=== PATIENT | female | born 2000 | race Caucasian/White ===

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

== ENCOUNTER 2020-01-06 21:09 | Emergency (ER) | payer OTHER ==
--- NOTE | 2020-01-06 21:30 | ERPHSYRPT ---
- History of Present Illness Time Seen by Provider: 01/06/20 21:30 Source: patient Exam Limitations: no limitations Physician History: Pt states about 6 hours ago she smoked a cigarette from a friend who ate honey ham and started with shortness of air. 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 Pt states she went to [facility] er for tx and was released about 1 hour later after iv benadryl. About 5 hours ago pt started with sharp constant 8/10 abdominal pain radiating to the back. About 90 minutes ago pt started with mid anterior sharp/achy chest pain radiating to the back. Pt denies chills, vomiting, diarrhea. Allergies/Adverse Reactions: divalproex sodium [From Depakote] Allergy (Mild, Verified 01/06/20 21:37) Rash morphine Allergy (Mild, Verified 01/06/20 21:37) Rash Home Medications: Cariprazine HCl [Vraylar] 1.5 mg PO DAILY 12/16/19 [History] Hx Tetanus, Diphtheria Vaccination/Date Given: Yes Hx Influenza Vaccination/Date Given: No Hx Pneumococcal Vaccination/Date Given: No - Review of Systems Constitutional: No Chills Respiratory: Dyspnea, No Cough Cardiac: Chest Pain Abdominal/Gastrointestinal: Abdominal Pain, No Vomiting, No Diarrhea Neurological: No Headache All Other Systems: Reviewed and Negative - Past Medical History Pertinent Past Medical History: Yes Neurological History: Migraines ENT History: No Pertinent History Cardiac History: No Pertinent History Respiratory History: Asthma Endocrine Medical History: No Pertinent History Musculoskeletal History: No Pertinent History GI Medical History: No Pertinent History History: No Pertinent History Psycho-Social History: Attention Deficit Disorder, Depression Female Reproductive Disorders: No Pertinent History Other Medical History: ADHD - Past Surgical History Past Surgical History: Yes Neuro Surgical History: No Pertinent History Cardiac: No Pertinent History Respiratory: No Pertinent History Gastrointestinal: Cholecystectomy Genitourinary: No Pertinent History Musculoskeletal: No Pertinent History Female Surgical History: No Pertinent History Other Surgical History: tonsils-2008 - Social History Smoking Status: Current every day smoker How long have you smoked: 9 months Exposure to second hand smoke: Yes Drug Use: marijuana Patient Lives Alone: No Significant Family History: no pertinent family hx - Nursing Vital Signs Nursing Vital Signs: Initial Vital Signs Temperature 98.1 F 01/06/20 21:16 Pulse Rate 106 H 01/06/20 21:16 Respiratory Rate 18 01/06/20 21:16 Blood Pressure 124/59 01/06/20 21:16 O2 Sat by Pulse Oximetry 99 01/06/20 21:16 Pain Scale Pain Intensity 7 - Physical Exam General Appearance: alert Eye Exam: PERRL/EOMI Ears, Nose, Throat Exam: hearing grossly normal, normal ENT inspection, normal pharynx Neck Exam: normal inspection Respiratory Exam: lungs clear Cardiovascular/Chest Exam: normal heart sounds Abdominal/Gastrointestinal Exam: soft, normal bowel sounds, tenderness (mild diffuse abdominal tenderness.) Extremity Exam: No pedal edema Peripheral Pulses Exam: dorsalis-pedis (R): 2+, dorsalis-pedis (L): 2+ Neurologic Exam: alert, cooperative Skin Exam: warm, dry SpO2 Interpretation: normal SpO2: 99 O2 Delivery: Room Air - Course Nursing assessment & vital signs reviewed: Yes EKG Interpreted by Me: RATE (82), NORMAL AXIS, NORMAL ST-T, Other (sinus arrhythmia) - CT Exams Chest CT Interpretation: Tele-radiologist Report (No evidence of pulmonary embolus. no evidence of acute pulmonary pathology.) Abdomen/Pelvis CT Interpretation: Tele-radiologist Report (no acute findings.) Ordered Tests: Active Orders 24 hr Category Date Time Status EKG-ER Only STAT Care 01/06/20 21:39 Active ABDOMEN AND PELVIS W/0 CONTRAS [CT] Stat Exams 01/06/20 21:41 Taken CHEST WITH CONTRAST [CT] Stat Exams 01/06/20 22:23 Taken AMYLASE Stat Lab 01/06/20 21:54 Completed CBC W DIFF Stat Lab 01/06/20 21:54 Completed CMP Stat Lab 01/06/20 21:54 Completed D-DIMER QUANTITATIVE Stat Lab 01/06/20 21:54 Completed HCG QUALITATIVE,SERUM Stat Lab 01/06/20 21:54 Completed LIPASE Stat Lab 01/06/20 21:54 Completed MAGNESIUM Stat Lab 01/06/20 21:54 Completed NT PRO BNP Stat Lab 01/06/20 21:54 Completed TROPONIN Q3H Lab 01/06/20 21:45 Completed TROPONIN Q3H Lab 01/07/20 01:46 Completed TROPONIN Q3H Lab 01/07/20 03:45 Ordered TROPONIN Q3H Lab 01/07/20 06:45 Ordered TROPONIN Q3H Lab 01/07/20 09:45 Ordered UA W/RFX UR CULTURE Stat Lab 01/06/20 22:49 Completed Lab/Rad Data: Laboratory Result Diagrams 01/06/20 21:54 01/06/20 21:54 Laboratory Results 01/07/20 01/06/20 01/06/20 Range/Units 01:46 22:49 21:54 WBC (4.0-10.5) K/mm3 RBC (4.1-5.4) M/mm3 Hgb (12.0-16.0) gm/dl Hct (35-47) % MCV (78-100) fl MCH (26-32) pg MCHC (32-36) g/dl RDW (11.5-14.0) % Plt Count (150-450) K/mm3 MPV (7.5-11.0) fl Gran % (36.0-66.0) % Eos # (Auto) (0-0.5) Absolute Lymphs (auto) (1.0-4.6) Absolute Monos (auto) (0.0-1.3) Lymphocytes % (24.0-44.0) % Monocytes % (0.0-12.0) % Eosinophils % (0.00-5.0) % Basophils % (0.0-0.4) % Absolute Granulocytes (1.4-6.9) Basophils # (0-0.4) D-Dimer (215-500) ng/mL Sodium (137-145) mmol/L Potassium (3.5-5.1) mmol/L Chloride (98-107) mmol/L Carbon Dioxide (22-30) mmol/L Anion Gap (5-15) MEQ/L BUN (7-17) mg/dL Creatinine (0.52-1.04) mg/dL Estimated GFR ML/MIN Glucose (74-106) mg/dL Calcium (8.4-10.2) mg/dL Magnesium (1.6-2.3) mg/dL Total Bilirubin (0.2-1.3) mg/dL AST (14-36) U/L ALT (0-35) U/L Alkaline Phosphatase (38-126) U/L Troponin I < 0.012 (0.000-0.034) ng/mL NT-Pro-B Natriuret Pep (0-450) pg/mL Serum Total Protein (6.3-8.2) g/dL Albumin (3.5-5.0) g/dL Amylase (30-110) U/L Lipase (23-300) U/L Serum , Qual NEGATIVE (Negative) Urine Color YELLOW (YELLOW) Urine Appearance CLEAR (CLEAR) Urine pH 6.0 (5-6) Ur Specific Stanley 1.010 (1.005-1.025) Urine Protein NEGATIVE (Negative) Urine Ketones NEGATIVE (NEGATIVE) Urine Blood NEGATIVE (0-5) Jose/ul Urine Nitrite NEGATIVE (NEGATIVE) Urine Bilirubin NEGATIVE (NEGATIVE) Urine Urobilinogen NEGATIVE (0-1) mg/dL Ur Leukocyte Esterase NEGATIVE (NEGATIVE) Urine WBC (Auto) NONE (0-5) /HPF Urine RBC (Auto) NONE (0-2) /HPF U Epithel Cells (Auto) RARE (FEW) /HPF Urine Bacteria (Auto) NONE SEEN (NEGATIVE) /HPF Urine Mucus (Auto) SLIGHT (NEGATIVE) /HPF Urine Culture Reflexed NO (NO) Urine Glucose NEGATIVE (NEGATIVE) mg/dL 01/06/20 01/06/20 01/06/20 Range/Units 21:54 21:54 21:54 WBC 12.4 H (4.0-10.5) K/mm3 RBC 4.46 (4.1-5.4) M/mm3 Hgb 13.0 (12.0-16.0) gm/dl Hct 40.3 (35-47) % MCV 90.4 (78-100) fl MCH 29.1 (26-32) pg MCHC 32.3 (32-36) g/dl RDW 13.8 (11.5-14.0) % Plt Count 306 (150-450) K/mm3 MPV 9.9 (7.5-11.0) fl Gran % 93.0 H (36.0-66.0) % Eos # (Auto) 0 (0-0.5) Absolute Lymphs (auto) 0.83 L (1.0-4.6) Absolute Monos (auto) 0.04 (0.0-1.3) Lymphocytes % 6.7 L (24.0-44.0) % Monocytes % 0.3 (0.0-12.0) % Eosinophils % 0.0 (0.00-5.0) % Basophils % 0.0 (0.0-0.4) % Absolute Granulocytes 11.51 H (1.4-6.9) Basophils # 0 (0-0.4) D-Dimer 692 H* (215-500) ng/mL Sodium 140 (137-145) mmol/L Potassium 3.8 (3.5-5.1) mmol/L Chloride 111 H (98-107) mmol/L Carbon Dioxide 18 L (22-30) mmol/L Anion Gap 14.6 (5-15) MEQ/L BUN 9 (7-17) mg/dL Creatinine 0.71 (0.52-1.04) mg/dL Estimated GFR > 60.0 ML/MIN Glucose 162 H (74-106) mg/dL Calcium 9.7 (8.4-10.2) mg/dL Magnesium 2.0 (1.6-2.3) mg/dL Total Bilirubin 0.40 (0.2-1.3) mg/dL AST 26 (14-36) U/L ALT 24 (0-35) U/L Alkaline Phosphatase 62 (38-126) U/L Troponin I (0.000-0.034) ng/mL NT-Pro-B Natriuret Pep 252 (0-450) pg/mL Serum Total Protein 7.7 (6.3-8.2) g/dL Albumin 4.4 (3.5-5.0) g/dL Amylase 52 (30-110) U/L Lipase 56 (23-300) U/L Serum , Qual (Negative) Urine Color (YELLOW) Urine Appearance (CLEAR) Urine pH (5-6) Ur Specific Stanley (1.005-1.025) Urine Protein (Negative) Urine Ketones (NEGATIVE) Urine Blood (0-5) Jose/ul Urine Nitrite (NEGATIVE) Urine Bilirubin (NEGATIVE) Urine Urobilinogen (0-1) mg/dL Ur Leukocyte Esterase (NEGATIVE) Urine WBC (Auto) (0-5) /HPF Urine RBC (Auto) (0-2) /HPF U Epithel Cells (Auto) (FEW) /HPF Urine Bacteria (Auto) (NEGATIVE) /HPF Urine Mucus (Auto) (NEGATIVE) /HPF Urine Culture Reflexed (NO) Urine Glucose (NEGATIVE) mg/dL 01/06/20 Range/Units 21:45 WBC (4.0-10.5) K/mm3 RBC (4.1-5.4) M/mm3 Hgb (12.0-16.0) gm/dl Hct (35-47) % MCV (78-100) fl MCH (26-32) pg MCHC (32-36) g/dl RDW (11.5-14.0) % Plt Count (150-450) K/mm3 MPV (7.5-11.0) fl Gran % (36.0-66.0) % Eos # (Auto) (0-0.5) Absolute Lymphs (auto) (1.0-4.6) Absolute Monos (auto) (0.0-1.3) Lymphocytes % (24.0-44.0) % Monocytes % (0.0-12.0) % Eosinophils % (0.00-5.0) % Basophils % (0.0-0.4) % Absolute Granulocytes (1.4-6.9) Basophils # (0-0.4) D-Dimer (215-500) ng/mL Sodium (137-145) mmol/L Potassium (3.5-5.1) mmol/L Chloride (98-107) mmol/L Carbon Dioxide (22-30) mmol/L Anion Gap (5-15) MEQ/L BUN (7-17) mg/dL Creatinine (0.52-1.04) mg/dL Estimated GFR ML/MIN Glucose (74-106) mg/dL Calcium (8.4-10.2) mg/dL Magnesium (1.6-2.3) mg/dL Total Bilirubin (0.2-1.3) mg/dL AST (14-36) U/L ALT (0-35) U/L Alkaline Phosphatase (38-126) U/L Troponin I < 0.012 (0.000-0.034) ng/mL NT-Pro-B Natriuret Pep (0-450) pg/mL Serum Total Protein (6.3-8.2) g/dL Albumin (3.5-5.0) g/dL Amylase (30-110) U/L Lipase (23-300) U/L Serum , Qual (Negative) Urine Color (YELLOW) Urine Appearance (CLEAR) Urine pH (5-6) Ur Specific Stanley (1.005-1.025) Urine Protein (Negative) Urine Ketones (NEGATIVE) Urine Blood (0-5) Jose/ul Urine Nitrite (NEGATIVE) Urine Bilirubin (NEGATIVE) Urine Urobilinogen (0-1) mg/dL Ur Leukocyte Esterase (NEGATIVE) Urine WBC (Auto) (0-5) /HPF Urine RBC (Auto) (0-2) /HPF U Epithel Cells (Auto) (FEW) /HPF Urine Bacteria (Auto) (NEGATIVE) /HPF Urine Mucus (Auto) (NEGATIVE) /HPF Urine Culture Reflexed (NO) Urine Glucose (NEGATIVE) mg/dL - Progress Progress: unchanged Counseled pt/family regarding: lab results, rad results - Departure Departure Disposition: Home Clinical Impression: Dyspnea, Chest pain, Abdominal pain Condition: Stable Critical Care Time: No Referrals: LONG DAWKINS MD [Primary Care Provider] - Instructions: Chest Pain, Acute Abdomen (Belly Pain), Adult (DC), Shortness of Breath (Dyspnea) (DC) Additional Instructions: Follow up with private doctor tomorrow.
[2020-01-06 21:58] LABS: Absolute Neutrophil Ct (ANC) 11.51 (1.4-6.9); Basophil (Absolute #) 0 (0-0.4); Eosinophil (Absolute #) 0 (0-0.5); Hematocrit 40.3 % (35-47); Lymphocyte (Absolute #) 0.83 (1.0-4.6); Lymphocytes % 6.7 % (24.0-44.0); Mean Cell Volume 90.4 fl (78-100); Mean Corpuscular Hemoglobin 29.1 pg (26-32); Mean Corpuscular Hgb Concent. 32.3 g/dl (32-36); Mean Platelet Volume 9.9 fl (7.5-11.0); Monocyte (Absolute #) 0.04 (0.0-1.3); Monocytes % 0.3 % (0.0-12.0); Platelet Count 306 K/mm3 (150-450); Red Blood Count 4.46 M/mm3 (4.1-5.4); Red Cell Distribution Width 13.8 % (11.5-14.0); White Blood Count 12.4 K/mm3 (4.0-10.5)
[2020-01-06 22:18] LABS: SGPT/ALT 24 U/L (0-35)
[2020-01-06 22:20] LABS: ALBUMIN 4.4 g/dL (3.5-5.0); ALKALINE PHOSPHATASE 62 U/L (38-126); AMYLASE 52 U/L (30-110); ANION GAP 14.6 MEQ/L (5-15); BLOOD UREA NITROGEN 9 mg/dL (7-17); CHLORIDE 111 mmol/L (98-107); Calcium 9.7 mg/dL (8.4-10.2); Carbon Dioxide 18 mmol/L (22-30); Creatinine 1 0.71 mg/dL (0.52-1.04); Glucose 162 mg/dL (74-106); LIPASE 56 U/L (23-300); NT PRO BNP 252 pg/mL (0-450); Potassium 3.8 mmol/L (3.5-5.1); SGOT/AST 26 U/L (14-36); SODIUM 140 mmol/L (137-145); Total Protein 7.7 g/dL (6.3-8.2)
[2020-01-06 22:55] LABS: Appearance CLEAR (CLEAR); Bilirubin NEGATIVE (NEGATIVE); Blood NEGATIVE Ery/ul (0-5); Epithelial Cells RARE /HPF (FEW); Glucose NEGATIVE (NEGATIVE); Ketones NEGATIVE (NEGATIVE); Leukocyte Esterase NEGATIVE (NEGATIVE); Mucus SLIGHT /HPF (NEGATIVE); Nitrite NEGATIVE (NEGATIVE); Protein,Urine Dip NEGATIVE (Negative); Urobilinogen NEGATIVE mg/dL (0-1)
[2020-01-06 23:01] LABS: Bacteria NONE SEEN /HPF (NEGATIVE)
[2020-01-07 02:27] VITALS: O2SAT 99
[2020-01-07 02:48] VITALS: BP 102/70; PULSE 71
--- NOTE | 2020-01-07 07:56 | XRAY ---
Indication: Abdomen pain following allergic reaction to honey. Multiple contiguous axial images obtained through the abdomen and pelvis without contrast as ordered. Comparison: April 01, 2015. CT chest reported separately. Noncontrasted stomach and bowel loops appear nonobstructed. Normal appendix. Tiny cul-de-sac fluid presumed physiologic from rupture/leaking cyst. No free air. Interval cholecystectomy. Remaining liver, pancreas, spleen, adrenal glands, kidneys, ureters, bladder, uterus, and aorta appear unremarkable for noncontrast exam. Osseous structures intact. No ventral or inguinal hernias. Impression: 1. Tiny cul-de-sac fluid presumed physiologic. 2. Remaining CT abdomen/pelvis without contrast exam is negative. Comment: Preliminary interpretation was made by [facility]. No critical discrepancy.
--- NOTE | 2020-01-07 07:59 | XRAY ---
Indication: Chest pain. Elevated WBC and d-dimer. Multiple contiguous axial images obtained through the chest using 80 cc Isovue-370 contrast and PE protocol. Comparison: None There is suboptimal opacification of the pulmonary arteries limiting evaluation for pulmonary embolus. No obvious central pulmonary embolus. Heart is not enlarged. Aorta is normal in course and caliber. No pathologic mediastinal/hilar lymphadenopathy. Examination of the lungs demonstrates a 1.1 cm peripheral left lower lobe indeterminant non-calcified nodule with irregular margins. Minimal right middle and left lower lobe fibrosis/scarring. No infiltrate, consolidation, or effusion. Bony thorax intact. CT abdomen/pelvis reported separately. Impression: 1. Pulmonary embolus evaluation limited due to suboptimal opacification. No obvious central pulmonary embolus. 2. Indeterminant left lower lobe irregular noncalcified nodule. PET/CT may yield further information. 3. No acute cardiopulmonary abnormalities. Comment: Preliminary interpretation was made by [facility] who does not report incidental left lower lobe nodule.
== END 2020-01-07 02:47 | disposition home or self-care (01) ==
LOC: ED 21:09
DX: R06.00 Dyspnea, unspecified (principal); R07.9 Chest pain, unspecified; R10.9 Unspecified abdominal pain
CPT/HCPCS: 36000; 36415; 71260; 74176; 80053; 81001; 81025; 82150; 83690; 83735; 83880; 84484; 85025; 85379; 93005; 99284

== ENCOUNTER 2020-06-29 00:09 | Emergency (ER) | payer OTHER ==
[2020-06-29] MEDS ORDERED: Ativan 1 MG PO ONE (00:17)
[2020-06-29] MEDS ORDERED: Ativan 1 MG ONE (00:31)
--- NOTE | 2020-06-29 00:35 | ERPHSYRPT ---
- History of Present Illness Time Seen by Provider: 06/29/20 00:11 Source: patient Exam Limitations: no limitations Physician History: Patient is here with chest pain and possible anxiety attack a gas station just prior to arrival. Patient states that she has a long history of mental illness including bipolar, major depression, PTSD, anxiety. She states that while she was at the gas station she had sudden onset of fluttering eyes, overwhelming feeling of dread, chest pain and shortness of breath. She states that she now feels mostly improved from the symptoms. EMS was called and she arrived to the emergency department. Location: chest Quality: sharp Radiation: none Severity: moderate Duration: just [employer] Timing: suddenly Modifying factors/associated signs and symptoms: none tried Allergies/Adverse Reactions: divalproex sodium [From Depakote] Allergy (Mild, Verified 01/06/20 21:37) Rash morphine Allergy (Mild, Verified 01/06/20 21:37) Rash Home Medications: Cariprazine HCl [Vraylar] 1.5 mg PO DAILY 12/16/19 [History] Hx Tetanus, Diphtheria Vaccination/Date Given: Yes Hx Influenza Vaccination/Date Given: No Hx Pneumococcal Vaccination/Date Given: No - Review of Systems Constitutional: No Fever, No Chills Eyes: No Symptoms Ears, Nose, & Throat: No Symptoms Respiratory: Dyspnea, No Cough Cardiac: Chest Pain, No Edema, No Syncope Abdominal/Gastrointestinal: No Abdominal Pain, No Nausea, No Vomiting, No Diarrhea Genitourinary Symptoms: No Dysuria Musculoskeletal: No Back Pain, No Neck Pain Skin: No Rash Neurological: No Dizziness, No Focal Weakness, No Sensory Changes Psychological: No Symptoms Endocrine: No Symptoms All Other Systems: Reviewed and Negative - Past Medical History Pertinent Past Medical History: Yes Neurological History: Migraines ENT History: No Pertinent History Cardiac History: No Pertinent History Respiratory History: Asthma Endocrine Medical History: No Pertinent History Musculoskeletal History: No Pertinent History GI Medical History: No Pertinent History History: No Pertinent History Psycho-Social History: Attention Deficit Disorder, Depression Female Reproductive Disorders: No Pertinent History Other Medical History: ADHD - Past Surgical History Past Surgical History: Yes Neuro Surgical History: No Pertinent History Cardiac: No Pertinent History Respiratory: No Pertinent History Gastrointestinal: Cholecystectomy Genitourinary: No Pertinent History Musculoskeletal: No Pertinent History Female Surgical History: No Pertinent History Other Surgical History: tonsils-2009 - Social History Smoking Status: Current every day smoker How long have you smoked: 9 months Exposure to second hand smoke: Yes Drug Use: marijuana Patient Lives Alone: No Significant Family History: no pertinent family hx - Female History Hx Now: No - Nursing Vital Signs Nursing Vital Signs: Initial Vital Signs Temperature 97.8 F 06/29/20 00:10 Pulse Rate 83 06/29/20 00:10 Respiratory Rate 18 06/29/20 00:10 Blood Pressure 119/66 06/29/20 00:10 O2 Sat by Pulse Oximetry 100 06/29/20 00:10 Pain Scale Pain Intensity 8 - Physical Exam General Appearance: no apparent distress, alert Eye Exam: PERRL/EOMI, eyes nml inspection Ears, Nose, Throat Exam: normal ENT inspection, TMs normal, pharynx normal, moist mucous membranes Neck Exam: normal inspection, non-tender, supple, full range of motion Respiratory Exam: normal breath sounds, lungs clear, No respiratory distress Cardiovascular Exam: regular rate/rhythm, normal heart sounds, normal peripheral pulses Gastrointestinal/Abdomen Exam: soft, normal bowel sounds, No tenderness, No mass Back Exam: normal inspection, normal range of motion, No CVA tenderness, No vertebral tenderness Extremity Exam: normal inspection, normal range of motion, pelvis stable Neurologic Exam: alert, oriented x 3, cooperative, normal mood/affect, nml cereb ellar function, nml station & gait, sensation nml, No motor deficits Skin Exam: normal color, warm, dry, No rash Lymphatic Exam: No adenopathy SpO2 Interpretation: normal Comments: 06/29/20 00:28 Motor: There is no pronator drift of out-stretched arms. Muscle bulk and tone are normal. Strength is full bilaterally. Reflexes: Reflexes are 2+ and symmetric at the biceps, triceps, knees, and ankles. Plantar responses are flexor. Sensory: Light touch sense are intact in bilateral upper and lower extremities. There is no sign of neglect. Coordination: Rapid alternating movements are intact. There is no dysmetria on [id number] and [id number]. There are no abnormal or extraneous movements. Romberg is absent. Gait/Stance: Posture is normal. Gait is steady with normal steps, base, arm swing, and turning. Heel and toe walking are normal. Tandem gait is normal. No trismus, able to fully extend neck, normal range of motion of neck without pain. Uvula is midline, no swelling of the mouth, noraml oropharynx. No exudate, no signs of meningitis, no floor of mouth swelling, no hot potato voice on exam. No buccal swelling, no gum bleeding, no signs of tooth abscess/infection. No obvious deformity, sensation intact, 2+ capillary refill, 2 point tactile discrimination intact. 5 out of 5 strength. Full range of motion without pain. Compartments are soft, nontender. Overlying skin shows no tenting, bruising, ecchymosis. - Course Nursing assessment & vital signs reviewed: Yes EKG Interpreted by Me: Sinus Rhythm Ordered Tests: Active Orders 24 hr Category Date Time Status EKG-ER Only STAT Care 06/29/20 00:17 Active CHEST 1 VIEW (PORTABLE) Stat Exams 06/29/20 00:17 Taken Medication Summary Discontinued Medications Generic Name Dose Route Start Last Admin Trade Name Freq PRN Reason Stop Dose Admin Lorazepam 1 mg 06/29/20 00:17 06/29/20 00:34 Ativan 1 Mg PO 06/29/20 00:18 1 mg STAT ONE Administration Lorazepam Confirm 06/29/20 00:31 Ativan 1 Mg Administered 06/29/20 00:32 Dose 1 mg .ROUTE .STK-MED ONE - Progress Progress: improved Progress Note: 06/29/20 00:31 Patient improved now. 99% on room air. She is not tachycardic. She denies secondary to being a lesbian. PERC negative. No need for further workup, as <2% chance of PE. Chest x-ray shows no obvious pneumonia, pneumothorax, abnormality. EKG sinus rhythm without ST elevation. Patient feels improved with Ativan here. Most likely is a panic attack. She was observed. No drops in oxygen. We will discharge patient home. Plan of care was discussed with patient and all questions answered. The patient is agreeable to be discharged home and both verbal and printed discharge instructions were provided.The patient agreed to seek outpatient follow up as discussed. The patient was given strict instructions to return to the emergency department for worsening symptoms or any other emergent concerns. The patient verbalized understanding. 06/29/20 01:03 Patient did request a Covid test. Therefore, we did do a Covid send out test on the patient. Counseled pt/family regarding: diagnosis, need for follow-up, rad results - Departure Departure Disposition: Home Clinical Impression: Anxiety with limited-symptom attacks Condition: Stable Critical Care Time: No Referrals: LONG DAWKINS MD [Primary Care Provider] - Instructions: Anxiety, Adult (DC)
[2020-06-29 01:13] VITALS: BP 125/49; PULSE 87; O2SAT 99
--- NOTE | 2020-06-29 08:00 | XRAY ---
Indication: Chest pain. Comparison: March 28, 2018. Portable chest demonstrates new 1 cm left midlung nodule detailed on CT chest January 07, 2020. Remaining heart, lungs, and bony thorax normal.
== END 2020-06-29 01:30 | disposition home or self-care (01) ==
LOC: ED 00:09
DX: F41.9 Anxiety disorder, unspecified (principal); F31.9 Bipolar disorder, unspecified; F43.10 Post-traumatic stress disorder, unspecified; Z72.0 Tobacco use
CPT/HCPCS: 71045; 93005; 99284; U0003; A9270-GY

== ENCOUNTER 2021-07-25 20:57 | Emergency (ER) | payer MEDICARE ==
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
[2021-07-25] MEDS ORDERED: NORCO 7.5/325 MG TAB PO ONE (22:43)
[2021-07-25] MEDS ORDERED: HYDROCODONE-ACETAMIN 10-325 MG PO ONE (22:57)
[2021-07-25 23:13] VITALS: BP 118/71; PULSE 80; O2SAT 99
--- NOTE | 2021-07-26 07:53 | XRAY ---
Indication: Pain following injury. Comparison: None 2 view left forearm obtained. No bony, articular, or soft tissue abnormalities.
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
== END 2021-07-25 23:20 | disposition home or self-care (01) ==
LOC: ED 20:57
DX: S62.327A Displaced fracture of shaft of fifth metacarpal bone, left hand, initial encounter for closed fracture (principal); W55.39XA Other contact with other hoof stock, initial encounter; Z72.0 Tobacco use; Z79.891 Long term (current) use of opiate analgesic
CPT/HCPCS: 29125; 73090; 73130; 99284; A9270-GY

== ENCOUNTER 2022-03-10 23:12 | Emergency (ER) | payer MEDICARE ==
--- NOTE | 2022-03-11 00:31 | ERPHSYRPT ---
- History of Present Illness Historian: patient Exam Limitations: no limitations Patient Subjective Stated Complaint: left sided chest pain radiating to left shoulder/neck/jaw. dizziness, nausea, headache, dyspnea. Triage Nursing Assessment: Pt ambulated to room. A&O X 3. Skin color WNL for race. Respirations regular and unlabored. Pt stated that she began taking a new control medication on Wednesday. Shortly after her s/s began. Last dose was at 1530 today, and symptoms have progressively worsened since. Lung sounds clear throughout. Heart sounds s1, s2 present and regular. Bowel sounds present c 4. No edema. Physician History: 21 yo wf w CP x7hrs. Pain is L sternal/dull-stabbing/worse w deep breaths. Pain is 8/10. She states that she is mildly dyspneic w nausea. Vomiting/diaphoresis/cough/coryza/fever all denied. Timing/Duration: hour(s) (7 hours) Activities at Onset: rest Quality: dullness, stabbing Location: other (L sternal) Chest Pain Radiation: no radiation Severity of Pain-Max: severe Severity of Pain-Current: severe Modifying Factors: Improves With: breathing (Deep breaths) Associated Symptoms: nausea, shortness of breath, hurts to breathe, No vomiting, No palpitations, No heartburn, No abdominal pain, No cough, No diaphoresis, No chills, No fever, No fatigue, No weakness, No swelling/lump in chest, No syncope, No rash, No headache, No dizziness, No edema, No back pain Prior Chest Pain/Cardiac Workup: no prior chest pain Nitro Today/Relief: no nitro taken today Aspirin Treatment Today: no aspirin today Allergies/Adverse Reactions: divalproex sodium [From Depakote] Allergy (Mild, Verified 07/25/21 21:04) Rash morphine Allergy (Mild, Verified 07/25/21 21:04) Rash Penicillins Allergy (Verified 03/10/22 23:13) Home Medications: Cariprazine HCl [Vraylar] 1.5 mg PO DAILY 12/16/19 [History] Norgestimate-Ethinyl Estradiol [Ncf-Zy-Zvbdyhsgt Tablet] 1 tab PO DAILY 03/10/22 [History] hydrOXYzine HCL [Hydroxyzine HCl] 25 mg PO Q4H PRN PRN 03/10/22 [History] Hx Tetanus, Diphtheria Vaccination/Date Given: Yes Hx Influenza Vaccination/Date Given: No Hx Pneumococcal Vaccination/Date Given: No Travel Risk - International Travel Have you traveled outside of the country in past 3 weeks: No - Coronavirus Screening Symptoms: Shortness of Breath, Headaches/Body Aches/Fatigue - Vaccine Status Have you recieved a Covid-19 vaccination: No - Review of Systems Constitutional: No Symptoms Eyes: No Symptoms Ears, Nose, & Throat: No Symptoms Respiratory: No Symptoms Cardiac: No Symptoms, Chest Pain Abdominal/Gastrointestinal: No Symptoms Genitourinary Symptoms: No Symptoms Musculoskeletal: No Symptoms Skin: No Symptoms Neurological: No Symptoms Psychological: No Symptoms Endocrine: No Symptoms Hematologic/Lymphatic: No Symptoms Immunological/Allergic: No Symptoms - Past Medical History Pertinent Past Medical History: Yes Neurological History: Migraines, Seizures ENT History: No Pertinent History Cardiac History: Congenital Heart Disease Respiratory History: Asthma Endocrine Medical History: No Pertinent History Musculoskeletal History: No Pertinent History GI Medical History: Polyps History: No Pertinent History Psycho-Social History: Anxiety, Depression Female Reproductive Disorders: Other Other Medical History: Pt unsure of what her congenital heart disease was. 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 Ovarian cysts. - Past Surgical History Past Surgical History: Yes Neuro Surgical History: No Pertinent History Cardiac: No Pertinent History Respiratory: No Pertinent History Gastrointestinal: Cholecystectomy Genitourinary: No Pertinent History Musculoskeletal: No Pertinent History Female Surgical History: No Pertinent History Other Surgical History: colonoscopy - Social History Smoking Status: Current every day smoker How long have you smoked: 4 years Exposure to second hand smoke: Yes Drug Use: marijuana Patient Lives Alone: No Significant Family History: no pertinent family hx - Female History Hx Last Menstrual Period: 03/03/22 Hx Now: No - Nursing Vital Signs Nursing Vital Signs: Initial Vital Signs Temperature 98.5 F 03/10/22 23:13 Pulse Rate 74 03/10/22 23:13 Respiratory Rate 20 03/10/22 23:13 Blood Pressure 124/70 03/10/22 23:13 O2 Sat by Pulse Oximetry 100 03/10/22 23:13 Pain Scale Pain Intensity 6 WNL - Physical Exam General Appearance: no apparent distress Eye Exam: PERRL/EOMI, eyes nml inspection Ears, Nose, Throat Exam: normal ENT inspection, TMs normal, pharynx normal, moist mucous membranes Neck Exam: normal inspection, non-tender, supple, full range of motion, No meningismus, No mass, No Brudzinski, No Kernig's, No carotid bruit Respiratory Exam: normal breath sounds, lungs clear, airway intact, No chest tenderness, No respiratory distress Cardiovascular Exam: regular rate/rhythm, normal heart sounds, normal peripheral pulses, capillary refill <2 sec, No murmur Gastrointestinal/Abdomen Exam: soft, normal bowel sounds, No tenderness Back Exam: normal inspection, normal range of motion, No CVA tenderness, No vertebral tenderness Extremity Exam: normal inspection, normal range of motion Neurologic Exam: alert, oriented x 3, cooperative, galvanizer II-XII nml as tested, normal mood/affect, nml cerebellar function, nml station & gait, sensation nml Skin Exam: normal color, warm, dry, No rash Lymphatic Exam: No adenopathy SpO2 Interpretation: normal SpO2: 100 O2 Delivery: Room Air - Course Nursing assessment & vital signs reviewed: Yes EKG Interpreted by Me: RATE (NSR/Rate 74/Normal QT-QTc/no acute ST segment changes) - Radiology Exams Chest X-ray Interpretation: Interpreted by me (CXR NAD) Ordered Tests: Active Orders 24 hr Category Date Time Status EKG-ER Only STAT Care 03/11/22 00:24 Completed CHEST 1 VIEW (PORTABLE) Stat Exams 03/11/22 00:24 Taken CBC W DIFF Stat Lab 03/11/22 00:24 Completed CMP Stat Lab 03/11/22 00:24 Completed D-DIMER QUANTITATIVE Stat Lab 03/11/22 00:24 Completed PROTIME WITH INR Stat Lab 03/11/22 00:24 Completed PTT Stat Lab 03/11/22 00:24 Completed TROPONIN Q4H Lab 03/11/22 00:30 Completed TROPONIN Q4H Lab 03/11/22 04:30 Ordered TROPONIN Q4H Lab 03/11/22 08:30 Ordered Medication Summary Discontinued Medications Generic Name Dose Route Start Last Admin Trade Name Freq PRN Reason Stop Dose Admin Ketorolac Tromethamine 15 mg 03/11/22 01:47 03/11/22 01:51 Ketorolac Tromethamine 30 Mg/Ml Inj IV 03/11/22 01:48 15 mg STAT ONE Administration Ketorolac Tromethamine Confirm 03/11/22 01:50 Ketorolac Tromethamine 30 Mg/Ml Inj Administered 03/11/22 01:51 Dose 30 mg .ROUTE .STK-MED ONE Lab/Rad Data: Laboratory Result Diagrams 03/11/22 00:24 03/11/22 00:24 Laboratory Results 03/11/22 03/11/22 03/11/22 Range/Units 00:30 00:24 00:24 WBC (4.0-10.5) x10^3/uL RBC (4.1-5.4) x10^6/uL Hgb (12.0-16.0) g/dL Hct (35-47) % MCV (78-100) fL MCH (26-32) pg MCHC (32-36) g/dL RDW (11.5-14.0) % Plt Count (150-450) x10^3/uL MPV (7.5-11.0) fL Gran % (36.0-66.0) % Immature Gran % (Auto) (0.00-0.4) % Nucleat RBC Rel Count (0.00-0.1) % Eos # (Auto) (0-0.5) x10^3/uL Immature Gran # (Auto) (0.00-0.03) x10^3u/L Absolute Lymphs (auto) (1.0-4.6) x10^3/uL Absolute Monos (auto) (0.0-1.3) x10^3/uL Absolute Nucleated RBC (0.00-0.01) x10^3u/L Lymphocytes % (24.0-44.0) % Monocytes % (0.0-12.0) % Eosinophils % (0.00-5.0) % Basophils % (0.0-0.4) % Absolute Granulocytes (1.4-6.9) x10^3/uL Basophils # (0-0.4) x10^3/uL PT 11.4 (9.4-12.5) SECONDS INR 1.08 (0.8-3.0) APTT 27.7 (25.1-36.5) SECONDS D-Dimer 0.28 (0.0-0.50) mg/L Sodium 139 (137-145) mmol/L Potassium 4.4 (3.5-5.1) mmol/L Chloride 104 (98-107) mmol/L Carbon Dioxide 28 (22-30) mmol/L Anion Gap 11.9 (5-15) MEQ/L BUN 12 (7-17) mg/dL Creatinine 0.84 (0.52-1.04) mg/dL Estimated GFR > 60.0 ML/MIN Glucose 90 (74-106) mg/dL Calcium 9.4 (8.4-10.2) mg/dL Total Bilirubin 0.60 (0.2-1.3) mg/dL AST 24 (14-36) U/L ALT 12 (0-35) U/L Alkaline Phosphatase 45 (38-126) U/L Troponin I < 0.012 (0.000-0.034) ng/mL Serum Total Protein 7.6 (6.3-8.2) g/dL Albumin 4.7 (3.5-5.0) g/dL 03/11/22 Range/Units 00:24 WBC 8.8 (4.0-10.5) x10^3/uL RBC 4.28 (4.1-5.4) x10^6/uL Hgb 13.2 (12.0-16.0) g/dL Hct 40.5 (35-47) % MCV 94.6 (78-100) fL MCH 30.8 (26-32) pg MCHC 32.6 (32-36) g/dL RDW 12.8 (11.5-14.0) % Plt Count 297 (150-450) x10^3/uL MPV 10.1 (7.5-11.0) fL Gran % 44.2 (36.0-66.0) % Immature Gran % (Auto) 0.2 (0.00-0.4) % Nucleat RBC Rel Count 0.0 (0.00-0.1) % Eos # (Auto) 0.39 (0-0.5) x10^3/uL Immature Gran # (Auto) 0.02 (0.00-0.03) x10^3u/L Absolute Lymphs (auto) 3.95 (1.0-4.6) x10^3/uL Absolute Monos (auto) 0.47 (0.0-1.3) x10^3/uL Absolute Nucleated RBC 0.00 (0.00-0.01) x10^3u/L Lymphocytes % 45.1 H (24.0-44.0) % Monocytes % 5.4 (0.0-12.0) % Eosinophils % 4.5 (0.00-5.0) % Basophils % 0.6 (0.0-0.4) % Absolute Granulocytes 3.87 (1.4-6.9) x10^3/uL Basophils # 0.05 (0-0.4) x10^3/uL PT (9.4-12.5) SECONDS INR (0.8-3.0) APTT (25.1-36.5) SECONDS D-Dimer (0.0-0.50) mg/L Sodium (137-145) mmol/L Potassium (3.5-5.1) mmol/L Chloride (98-107) mmol/L Carbon Dioxide (22-30) mmol/L Anion Gap (5-15) MEQ/L BUN (7-17) mg/dL Creatinine (0.52-1.04) mg/dL Estimated GFR ML/MIN Glucose (74-106) mg/dL Calcium (8.4-10.2) mg/dL Total Bilirubin (0.2-1.3) mg/dL AST (14-36) U/L ALT (0-35) U/L Alkaline Phosphatase (38-126) U/L Troponin I (0.000-0.034) ng/mL Serum Total Protein (6.3-8.2) g/dL Albumin (3.5-5.0) g/dL - Progress Progress: improved Progress Note: 03/11/22 01:47 15mg IV Toradol 03/11/22 01:48 Heart score 0 Counseled pt/family regarding: lab results, diagnosis, need for follow-up, rad results - Departure Departure Disposition: Home Clinical Impression: Chest pain Condition: Stable Critical Care Time: No Referrals: LONG DAWKINS MD [Primary Care Provider] - Follow up/PCP as directed Instructions: Chest Pain (DC) Additional Instructions: Follow up with your family MD Return to ER for increasing pain or temperature greater than 100.5
[2022-03-11 00:37] LABS: Absolute Neutrophil Ct (ANC) 3.87 x10^3/uL (1.4-6.9); Basophil (Absolute #) 0.05 x10^3/uL (0-0.4); Eosinophil % 4.5 % (0.00-5.0); Eosinophil (Absolute #) 0.39 x10^3/uL (0-0.5); Hematocrit 40.5 % (35-47); Hemoglobin 13.2 g/dL (12.0-16.0); Lymphocyte (Absolute #) 3.95 x10^3/uL (1.0-4.6); Lymphocytes % 45.1 % (24.0-44.0); Mean Cell Volume 94.6 fL (78-100); Mean Corpuscular Hemoglobin 30.8 pg (26-32); Mean Corpuscular Hgb Concent. 32.6 g/dL (32-36); Mean Platelet Volume 10.1 fL (7.5-11.0); Monocyte (Absolute #) 0.47 x10^3/uL (0.0-1.3); Monocytes % 5.4 % (0.0-12.0); Neutrophil % 44.2 % (36.0-66.0); Platelet Count 297 x10^3/uL (150-450); Red Blood Count 4.28 x10^6/uL (4.1-5.4); Red Cell Distribution Width 12.8 % (11.5-14.0); White Blood Count 8.8 x10^3/uL (4.0-10.5)
[2022-03-11 00:40] LABS: ALBUMIN 4.7 g/dL (3.5-5.0); ALKALINE PHOSPHATASE 45 U/L (38-126); ANION GAP 11.9 MEQ/L (5-15); BLOOD UREA NITROGEN 12 mg/dL (7-17); CHLORIDE 104 mmol/L (98-107); Calcium 9.4 mg/dL (8.4-10.2); Carbon Dioxide 28 mmol/L (22-30); Creatinine 1 0.84 mg/dL (0.52-1.04); EST GLOMERULAR FILTRATION RATE > 60.0 ML/MIN; Glucose 90 mg/dL (74-106); Potassium 4.4 mmol/L (3.5-5.1); SGOT/AST 24 U/L (14-36); SGPT/ALT 12 U/L (0-35); SODIUM 139 mmol/L (137-145); Total Protein 7.6 g/dL (6.3-8.2)
[2022-03-11 00:46] LABS: D-DIMER QUANTITATIVE 0.28 mg/L (0.0-0.50); INR 1.08 (0.8-3.0); PROTIME 11.4 SECONDS (9.4-12.5); PTT 27.7 SECONDS (25.1-36.5)
[2022-03-11] MEDS ORDERED: TORAdol 30 mg Injection ONE (01:50)
[2022-03-11] MEDS: TORAdol 30 mg Injection IV ONE (01:51)
[2022-03-11 02:07] VITALS: BP 105/62; PULSE 62
[2022-03-11 02:23] VITALS: O2SAT 100
--- NOTE | 2022-03-11 09:12 | XRAY ---
Indication: Chest pain. Comparison: June 29, 2020 Portable apical lordotic chest demonstrates stable small left midlung benign nodule. Remaining heart, lungs, and bony thorax normal.
== END 2022-03-11 02:07 | disposition home or self-care (01) ==
LOC: ED 23:12
DX: R07.9 Chest pain, unspecified (principal); R06.00 Dyspnea, unspecified; R11.0 Nausea; Z72.0 Tobacco use; Z79.899 Other long term (current) drug therapy; Z28.310 Unvaccinated for COVID-19
CPT/HCPCS: 36415; 71045; 80053; 84484; 85025; 85379; 85610; 85730; 93005; 96374; 99284; J1885

== ENCOUNTER 2022-08-09 20:01 | Emergency (ER) | payer MEDICARE ==
--- NOTE | 2022-08-09 20:05 | ERPHSYRPT ---
- History of Present Illness Time Seen by Provider: 08/09/22 20:05 Source: patient Exam Limitations: no limitations Physician History: 21 y/o left handed white female presents with right middle finger superficial flap laceration. pts tetanus utd less than 1 year ago[address] pts pcp dr Dawkins. pt has h/o migraine nolan, seizure d/o, asthma, and anxiety. broken glass involved Timing/Duration: today Quality: painful Severity: mild Location: hands (right hand distal 3rd digit laceratiojn) Possible Causes: no cause identified Allergies/Adverse Reactions: honey Allergy (Severe, Verified 08/09/22 20:16) Difficulty Breathing divalproex sodium [From Depakote] Allergy (Mild, Verified 08/09/22 20:16) Rash morphine Allergy (Mild, Verified 08/09/22 20:16) Rash Penicillins Allergy (Verified 08/09/22 20:16) Home Medications: hydrOXYzine HCL [Hydroxyzine HCl] 25 mg PO Q4H PRN PRN 03/10/22 [History] Doxepin HCl 10 mg PO HS 08/09/22 [History] Ondansetron ODT 4 MG [Zofran Odt 4 mg] 1 tab PO Q8H PRN PRN 08/09/22 [History] Hx Tetanus, Diphtheria Vaccination/Date Given: Yes Hx Influenza Vaccination/Date Given: No Hx Pneumococcal Vaccination/Date Given: No Travel Risk - International Travel Have you traveled outside of the country in past 3 weeks: No - Coronavirus Screening Are you exhibiting any of the following symptoms?: No Close contact with a COVID-19 positive Pt in past 14-21 Days: No - Vaccine Status Have you recieved a Covid-19 vaccination: No - Review of Systems Constitutional: No Symptoms Eyes: No Symptoms Ears, Nose, & Throat: No Symptoms Respiratory: No Symptoms Cardiac: No Symptoms Abdominal/Gastrointestinal: No Symptoms Genitourinary Symptoms: No Symptoms Musculoskeletal: No Symptoms Skin: Other (laceration) Neurological: No Symptoms Psychological: No Symptoms Endocrine: No Symptoms Hematologic/Lymphatic: No Symptoms Immunological/Allergic: No Symptoms All Other Systems: Reviewed and Negative - Past Medical History Pertinent Past Medical History: Yes Neurological History: Migraines, Seizures ENT History: No Pertinent History Cardiac History: Congenital Heart Disease Respiratory History: Asthma Endocrine Medical History: No Pertinent History Musculoskeletal History: No Pertinent History GI Medical History: Polyps History: No Pertinent History Psycho-Social History: Anxiety, Depression Female Reproductive Disorders: Other Other Medical History: Pt unsure of what her congenital heart disease was. 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 Ovarian cysts. - Past Surgical History Past Surgical History: Yes Neuro Surgical History: No Pertinent History Cardiac: No Pertinent History Respiratory: No Pertinent History Gastrointestinal: Cholecystectomy Genitourinary: No Pertinent History Musculoskeletal: No Pertinent History Female Surgical History: No Pertinent History Other Surgical History: colonoscopy - Social History Smoking Status: Current every day smoker How long have you smoked: 4 years Exposure to second hand smoke: Yes Drug Use: marijuana Patient Lives Alone: No Significant Family History: no pertinent family hx - Nursing Vital Signs Nursing Vital Signs: Initial Vital Signs Temperature 97.6 F 08/09/22 20:05 Pulse Rate 74 08/09/22 20:05 Respiratory Rate 18 08/09/22 20:05 Blood Pressure 111/63 08/09/22 20:05 O2 Sat by Pulse Oximetry 100 08/09/22 20:05 Pain Scale Pain Intensity 4 - Physical Exam General Appearance: no apparent distress, alert, anxiety Eye Exam: PERRL/EOMI, eyes nml inspection Ears, Nose, Throat Exam: normal ENT inspection, moist mucous membranes Neck Exam: normal inspection, non-tender, supple, full range of motion Respiratory Exam: airway intact, No chest tenderness, No respiratory distress Gastrointestinal/Abdomen Exam: No tenderness Pelvic Exam: not done Rectal Exam: not done Back Exam: normal inspection, normal range of motion, No CVA tenderness, No vertebral tenderness Extremity Exam: normal range of motion, pelvis stable, tenderness (3rd digit right hand) Skin Exam: laceration (flap distal 3rd digit right hand. no fb, no bleeding, tendon and nv intact) Lymphatic Exam: No adenopathy SpO2 Interpretation: normal O2 Delivery: Room Air Procedures - Laceration/Wound Repair Right Distal Volar Finger Time of Procedure: 20:30 Wound Location: Right, hand (3rd digit) Wound Length (cm): 0.5 Wound's Depth, Shape: superficial, linear, flap Wound Explored: clean (no fb, no bleeding. explored to bas) Irrigated: Yes Hibiclens Prep: Yes Wound Repaired With: Steri-strips, Dermabond Sterile Dressing Applied?: Yes Ordered Tests: Active Orders 24 hr Category Date Time Status HAND (MINIMUM 3 VIEWS) Stat Exams 08/09/22 20:12 Ordered - Progress Progress: improved, pain not gone completely, re-examined Progress Note: 08/09/22 20:41 xray right hand interpreted by me: no fb, no acute process 08/09/22 20:41 medical decision making: this encountered is of low complexity. i came to this conclusion based on evaluation of pts hx(which i obtained from pt), physical exam findings and interpretation of pts right hand xray Counseled pt/family regarding: diagnosis, need for follow-up - Departure Departure Disposition: Home Clinical Impression: Laceration of finger Condition: Stable Critical Care Time: No Referrals: LONG DAWKINS MD [Primary Care Provider] - Follow up/PCP as directed Additional Instructions: leave top dressing in place and keep dry for 24 hours. after 24 hours, may remove top dressing and leave steristrips in place until they fall off on their own. use tylenol and ibuprofen for pain control
[2022-08-09 20:08] VITALS: O2SAT 100
[2022-08-09 21:06] VITALS: BP 102/62; PULSE 73
--- NOTE | 2022-08-10 08:49 | XRAY ---
Indication: Fourth finger laceration. Comparison: None 3 view right hand obtained. No bony, articular, or soft tissue abnormalities.
== END 2022-08-09 21:03 | disposition home or self-care (01) ==
LOC: ED 20:01
DX: S61.212A Laceration without foreign body of right middle finger without damage to nail, initial encounter (principal); W25.XXXA Contact with sharp glass, initial encounter; Z79.899 Other long term (current) drug therapy; Z28.310 Unvaccinated for COVID-19; Z72.0 Tobacco use
CPT/HCPCS: 12001; 73130; 99281

== ENCOUNTER 2022-12-13 21:16 | Emergency (ER) | payer MEDICARE ==
[2022-12-13 21:25] VITALS: BP 120/79; PULSE 78; O2SAT 100
[2022-12-13] MEDS ORDERED: TORAdol 30 mg Injection IM ONE (21:36)
[2022-12-13] MEDS ORDERED: TORAdol 30 mg Injection ONE (21:40)
--- NOTE | 2022-12-13 21:48 | ERPHSYRPT ---
- History of Present Illness Source: patient Exam Limitations: no limitations Patient Subjective Stated Complaint: pt c/o R leg pain that radiates to R lower back, abrasion on R great toe Triage Nursing Assessment: pt ambulatory to room by self with steady gait, pt alert and oriented, pt c/o R leg pain after brother slid into her leg playing baseball, pt has ecchymosis on lateral aspect of R leg, abrasion on R great toe, tetanus utd, pt admitted to smoking marijuana Physician History: 22 yo WF w R foot pain and R lateral fibular pain after brother slid into leg while playing baseball before arrival. Pain is moderate and worse w weight favio ring. She denies other injuries, and tetanus is UTD. is also denied. Method of Injury: direct blow (Brother slid into leg) Occurred: just prior to arrival Quality: constant Severity of Pain-Max: severe Severity of Pain-Current: moderate Lower Extremities Pain: leg: right, foot: right Modifying Factors: Improves With: movement Associated Symptoms: none Allergies/Adverse Reactions: honey Allergy (Severe, Verified 12/13/22 21:23) Difficulty Breathing divalproex sodium [From Depakote] Allergy (Mild, Verified 12/13/22 21:23) Rash morphine Allergy (Mild, Verified 12/13/22 21:23) Rash Penicillins Allergy (Verified 12/13/22 21:23) Home Medications: hydrOXYzine HCL [Hydroxyzine HCl] 25 mg PO Q4H PRN PRN 03/10/22 [History] Doxepin HCl 10 mg PO HS 08/09/22 [History] Ondansetron ODT 4 MG [Zofran Odt 4 mg] 1 tab PO Q8H PRN PRN 08/09/22 [History] Hx Tetanus, Diphtheria Vaccination/Date Given: Yes Hx Influenza Vaccination/Date Given: No Hx Pneumococcal Vaccination/Date Given: No Immunizations Up to Date: Yes Travel Risk - International Travel Have you traveled outside of the country in past 3 weeks: No - Coronavirus Screening Are you exhibiting any of the following symptoms?: No Close contact with a COVID-19 positive Pt in past 14-21 Days: No - Vaccine Status Have you recieved a Covid-19 vaccination: No - Review of Systems Constitutional: No Symptoms Eyes: No Symptoms Ears, Nose, & Throat: No Symptoms Respiratory: No Symptoms Cardiac: No Symptoms Abdominal/Gastrointestinal: No Symptoms Genitourinary Symptoms: No Symptoms Skin: No Symptoms Neurological: No Symptoms Psychological: No Symptoms Endocrine: No Symptoms Hematologic/Lymphatic: No Symptoms Immunological/Allergic: No Symptoms - Past Medical History Pertinent Past Medical History: Yes Neurological History: Migraines, Seizures ENT History: No Pertinent History Cardiac History: Congenital Heart Disease Respiratory History: Asthma Endocrine Medical History: No Pertinent History Musculoskeletal History: No Pertinent History GI Medical History: Polyps History: No Pertinent History Psycho-Social History: Anxiety, Depression Female Reproductive Disorders: Other Other Medical History: Pt unsure of what her congenital heart disease was. 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 Ovarian cysts., factor 5 - Past Surgical History Past Surgical History: Yes Neuro Surgical History: No Pertinent History Cardiac: No Pertinent History Respiratory: No Pertinent History Gastrointestinal: Cholecystectomy Genitourinary: No Pertinent History Musculoskeletal: No Pertinent History Female Surgical History: No Pertinent History Other Surgical History: colonoscopy - Social History Smoking Status: Former smoker How long have you smoked: 4 years Exposure to second hand smoke: Yes Drug Use: marijuana Patient Lives Alone: No Significant Family History: no pertinent family hx - Female History Hx Last Menstrual Period: 12/11/22 Hx Now: No - Nursing Vital Signs Nursing Vital Signs: Initial Vital Signs Temperature 98.6 F 12/13/22 21:23 Pulse Rate 78 12/13/22 21:23 Respiratory Rate 18 12/13/22 21:23 Blood Pressure 120/79 12/13/22 21:23 O2 Sat by Pulse Oximetry 100 12/13/22 21:23 Pain Scale Pain Intensity 7 WNL - Physical Exam General Appearance: no apparent distress Eyes, Ears, Nose, Throat Exam: normal ENT inspection, TMs normal, pharynx normal, moist mucous membranes Neck Exam: normal inspection, non-tender, supple, full range of motion, No Brudzinski, No Kernig's, No meningismus Cardiovascular/Respiratory Exam: normal breath sounds, regular rate/rhythm, heart sounds normal Gastrointestinal/Abdominal Exam: non-tender, soft Back Exam: normal inspection, normal range of motion, No CVA tenderness, No vertebral tenderness Hips Exam: bilateral: non-tender, normal inspection, normal range of motion, no evidence of injury Legs Exam: right leg: other (TTP R lateral superior fibular area w mild edema) Knees Exam: bilateral knee: non-tender, normal inspection, normal range of mot ion, no evidence of injury Ankle Exam: bilateral ankle: non-tender, normal inspection, normal range of motion, no evidence of injury Foot Exam: right foot: other (Abrasion and mild TTP medial R great toe) Neuro/Tendon Exam: normal sensation, normal motor functions, normal tendon functions, responds to pain, no evidence tendon injury, No motor deficit, No sensory deficit Mental Status Exam: alert, oriented x 3, cooperative Skin Exam: normal color, warm SpO2 Interpretation: normal SpO2: 100 O2 Delivery: Room Air - Course Nursing assessment & vital signs reviewed: Yes - Radiology Exams Foot X-ray Interpretation: Interpreted by me (L foot neg per ER read) Lower Leg X-ray Interpretation: Interpreted by me (L Tib/Fib neg per ER read) Ordered Tests: Active Orders 24 hr Category Date Time Status FOOT (MINIMUM 3 VIEWS) Stat Exams 12/13/22 21:34 Completed LOWER LEG Stat Exams 12/13/22 21:36 Completed Medication Summary Discontinued Medications Generic Name Dose Route Start Last Admin Trade Name Freq PRN Reason Stop Dose Admin Ketorolac Tromethamine 30 mg 12/13/22 21:36 12/13/22 21:41 Ketorolac Tromethamine 30 Mg/Ml Inj IM 12/13/22 21:37 30 mg STAT ONE Administration Ketorolac Tromethamine Confirm 12/13/22 21:40 Ketorolac Tromethamine 30 Mg/Ml Inj Administered 12/13/22 21:41 Dose 30 mg .ROUTE .STK-MED ONE - Progress Progress: improved Progress Note: 12/13/22 22:27 Nursing note and vital signs reviewed No food or housing insecurities noted L Foot/L Tib-fib XR neg per ER read and shared w pt Additional history per sibling 30mg IM Toradol w improvement Counseled pt/family regarding: diagnosis, need for follow-up, rad results Medical Desision Making - Independent Historian Additional History obtained from: Family - Diagnostic Testing Radiological Interpretation: Interpreted by me - Risk of complications Low Risk: Low risk of morbidity from additional dx testing or treatment - Departure Departure Disposition: Home Clinical Impression: Contusion of leg, left, Foot abrasion, Contusion of foot, left Condition: Stable Critical Care Time: No Referrals: LONG DAWKINS MD [Primary Care Provider] - Follow up/PCP as directed Instructions: Contusion (DC) Additional Instructions: Ice contused areas for 12-24 hours Motrin/Tylenol for pain Follow up with your family MD for continued pain
--- NOTE | 2022-12-13 22:23 | XRAY ---
Indication: Pain following injury. Comparison: None 2 view right lower leg obtained. No bony, articular, or soft tissue abnormalities.
--- NOTE | 2022-12-13 22:25 | XRAY ---
Indication: Pain following injury. Comparison: None 3 nonweightbearing views right foot demonstrates tiny plantar heel spur. No other bony, articular, or soft tissue abnormalities.
== END 2022-12-13 22:42 | disposition home or self-care (01) ==
LOC: ED 21:16
DX: S80.11XA Contusion of right lower leg, initial encounter (principal); S90.31XA Contusion of right foot, initial encounter; S90.811A Abrasion, right foot, initial encounter; W21.31XA Struck by shoe cleats, initial encounter; Y93.64 Activity, baseball; Z79.899 Other long term (current) drug therapy; Z28.310 Unvaccinated for COVID-19
CPT/HCPCS: 73590; 73630; 96372; 99283; J1885

== ENCOUNTER 2023-05-05 18:23 | Emergency (ER) | payer MEDICARE ==
[2023-05-05 18:44] VITALS: BP 136/97; PULSE 96; RESP 18; TEMP 98.7; O2SAT 99
== END 2023-05-05 18:44 | disposition left against medical advice (07) ==
LOC: ED 18:23
DX: K08.89 Other specified disorders of teeth and supporting structures (principal)
CPT/HCPCS: 99281; G0463

== ENCOUNTER 2023-05-13 11:42 | Emergency (ER) | payer MEDICARE ==
--- NOTE | 2023-05-13 11:47 | ERPHSYRPT ---
- History of Present Illness Time Seen by Provider: 05/13/23 11:47 Source: patient Exam Limitations: no limitations Physician History: This is a 22-year-old white female patient who had signed in to our emergency department seen on 05/05/2003 for chronic tooth infection but left without being seen after she was told we would not be placing an IV line to provide her antibiotics and we would not be transferring her by ambulance to [place] for a chronic tooth infection. She presents today with the complaint of intermittent sore throat over the last 1 to 2 weeks. She was seen in outpatient clinic yesterday and per patient report, she had a negative strep test. Patient has a history of migraine headaches, seizures, asthma and anxiety. Timing/Duration: intermittent Severity: mild Prearrival Treatment: no prearrival treatment Modifying Factors: Improves With: activity Associated Symptoms: ear pain (R), sore throat, tooth pain Allergies/Adverse Reactions: honey Allergy (Severe, Verified 05/13/23 12:24) Difficulty Breathing divalproex sodium [From Depakote] Allergy (Mild, Verified 05/13/23 12:24) Rash morphine Allergy (Mild, Verified 05/13/23 12:24) Rash Penicillins Allergy (Verified 05/13/23 12:24) Home Medications: hydrOXYzine HCL [Hydroxyzine HCl] 25 mg PO Q4H PRN PRN 03/10/22 [History] Ondansetron ODT 4 MG [Zofran Odt 4 mg] 1 tab PO Q8H PRN PRN 08/09/22 [History] Viloxazine HCl [Qelbree] 100 mg PO DAILY 05/13/23 [History] Viloxazine HCl [Qelbree] 200 mg PO DAILY 05/13/23 [History] Hx Tetanus, Diphtheria Vaccination/Date Given: Yes Hx Influenza Vaccination/Date Given: No Hx Pneumococcal Vaccination/Date Given: No Travel Risk - International Travel Have you traveled outside of the country in past 3 weeks: No - Coronavirus Screening Are you exhibiting any of the following symptoms?: No Close contact with a COVID-19 positive Pt in past 14-21 Days: No - Vaccine Status Have you recieved a Covid-19 vaccination: No - Review of Systems Constitutional: No Symptoms Eyes: No Symptoms Ears, Nose, & Throat: Ear Pain (Right side), Throat Pain Respiratory: No Symptoms Cardiac: No Symptoms Abdominal/Gastrointestinal: No Symptoms Genitourinary Symptoms: No Symptoms Musculoskeletal: No Symptoms Skin: No Symptoms Neurological: No Symptoms Psychological: No Symptoms Endocrine: No Symptoms Hematologic/Lymphatic: No Symptoms Immunological/Allergic: No Symptoms All Other Systems: Reviewed and Negative - Past Medical History Pertinent Past Medical History: Yes Neurological History: Migraines, Seizures ENT History: No Pertinent History Cardiac History: Congenital Heart Disease Respiratory History: Asthma Endocrine Medical History: No Pertinent History Musculoskeletal History: No Pertinent History GI Medical History: Polyps History: No Pertinent History Psycho-Social History: Anxiety, Depression Female Reproductive Disorders: Other Other Medical History: Pt unsure of what her congenital heart disease was. 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 Ovarian cysts., factor 5 - Past Surgical History Past Surgical History: Yes Neuro Surgical History: No Pertinent History Cardiac: No Pertinent History Respiratory: No Pertinent History Gastrointestinal: Cholecystectomy Genitourinary: No Pertinent History Musculoskeletal: No Pertinent History Female Surgical History: No Pertinent History Other Surgical History: colonoscopy - Social History Smoking Status: Former smoker How long have you smoked: 4 years Exposure to second hand smoke: Yes Drug Use: marijuana Patient Lives Alone: No Significant Family History: no pertinent family hx - Nursing Vital Signs Nursing Vital Signs: Initial Vital Signs Temperature 98.6 F 05/13/23 12:11 Pulse Rate 79 05/13/23 12:11 Blood Pressure 120/65 05/13/23 12:11 O2 Sat by Pulse Oximetry 97 05/13/23 12:11 Pain Scale Pain Intensity 3 - Physical Exam General Appearance: no apparent distress, alert, anxiety Eye Exam: bilateral eye: normal inspection, PERRL, EOMI Ear Exam: bilateral ear: auricle normal, canal normal, TM normal Nasal Exam: normal inspection, No sinus tenderness Throat Exam: normal, pharynx normal, dental tenderness (Fronek right side) Neck Exam: normal inspection, non-tender, supple, full range of motion, trachea midline Cardiovascular/Respiratory Exam: chest non-tender, no respiratory distress Abdominal Exam: non-tender Neurologic Exam: alert, oriented x 3, cooperative, industrial maintenance repairer helper II-XII nml as tested, normal mood/affect, nml cerebellar function, nml station & gait, sensation nml Skin Exam: normal color, warm, dry SpO2 Interpretation: normal O2 Delivery: Room Air - Course Nursing assessment & vital signs reviewed: Yes Lab/Rad Data: Laboratory Results 05/13/23 05/13/23 Range/Units 12:48 12:48 Influenza Type A Ag NEGATIVE (NEGATIVE) Influenza Type B Ag NEGATIVE (NEGATIVE) RSV (PCR) NEGATIVE (NEGATIVE) SARS-CoV-2 (PCR) NEGATIVE (NEGATIVE) Group A Strep Antibody NOT DETECTED (NEGATIVE) - Progress Progress: unchanged Progress Note: 05/13/23 12:37 This patient's medical issue is 1 of low complexity. The level complexity in the work-up performed is based on review of the patient's past medical history, review the patient's medication list, review of the patient's drug allergy list, history of present illness and physical findings on examination. Work-up in this patient includes group A strep test and viral swabs. 05/13/23 14:16 Interpreted the labs in this patient. This patient does not have an acute, emergent issue. She needs to follow-up with her primary care provider and possible referral to qualitative executive researcher and oral surgeon. Counseled pt/family regarding: lab results, diagnosis, need for follow-up Medical Desision Making - Independent Historian Additional History obtained from: Relative/friend - Diagnostic Testing Diagnostic test were ordered, analyzed, and reviewed by me: Yes - Risk of complications Minimal Risk: Minimal risk of morbidity - Departure Departure Disposition: Home Clinical Impression: Sore throat Condition: Stable Critical Care Time: No Referrals: LONG DAWKINS MD [Primary Care Provider] - Follow up/PCP as directed Additional Instructions: Drink plenty of fluids. May use throat lozenges. Call your primary care provider today to make arranges for follow-up appointment the next 3 to 5 days for further evaluation management including referral to ENT specialist and oral surgeon to address your chronic teeth issues.
[2023-05-13 12:24] VITALS: TEMP 98.6
[2023-05-13 13:31] LABS: INFLUENZA A NEGATIVE (NEGATIVE); INFLUENZA B NEGATIVE (NEGATIVE); RESPIRATORY SYNCTIAL VIRUS NEGATIVE (NEGATIVE); SARS-CoV-2 Xpert Express NEGATIVE (NEGATIVE)
[2023-05-13 14:22] VITALS: BP 118/64; PULSE 73; O2SAT 98
== END 2023-05-13 14:22 | disposition home or self-care (01) ==
LOC: ED 11:42
DX: J02.9 Acute pharyngitis, unspecified (principal); Z79.899 Other long term (current) drug therapy; Z28.310 Unvaccinated for COVID-19
CPT/HCPCS: 0241U; 87651; 99282

== ENCOUNTER 2023-05-22 11:41 | Emergency (ER) | payer MEDICARE ==
[2023-05-22] MEDS ORDERED: TYLENOL 325 MG PO ONE (12:08)
[2023-05-22] MEDS ORDERED: Sodium Chloride 0.9% 1000 ML 1,000 ML IV STA ×2 (12:08→13:13)
[2023-05-22] MEDS ORDERED: Zofran 4 MG/2 ML VIAL IV ONE (12:08)
[2023-05-22] MEDS ORDERED: TORAdol 30 mg Injection IV ONE (12:08)
[2023-05-22 12:09] VITALS: TEMP 97
[2023-05-22] MEDS ORDERED: TYLENOL 325 MG ONE (12:12)
[2023-05-22] MEDS ORDERED: Zofran 4 MG/2 ML VIAL ONE (12:12)
[2023-05-22] MEDS ORDERED: Sodium Chloride 0.9% 1000 ML 1,000 ML ONE ×2 (12:12→13:15)
[2023-05-22] MEDS ORDERED: TORAdol 30 mg Injection ONE (12:12)
[2023-05-22 12:26] LABS: Absolute Neutrophil Ct (ANC) 10.17 x10^3/uL (1.4-6.9); BASOPHIL % 0.2 % (0.0-0.4); Basophil (Absolute #) 0.02 x10^3/uL (0-0.4); Eosinophil % 1.6 % (0.00-5.0); Eosinophil (Absolute #) 0.19 x10^3/uL (0-0.5); Hemoglobin 12.7 g/dL (12.0-16.0); IMMATURE GRAN # 0.05 x10^3u/L (0.00-0.03); IMMATURE GRAN % 0.4 % (0.00-0.4); Lymphocyte (Absolute #) 0.98 x10^3/uL (1.0-4.6); Lymphocytes % 8.2 % (24.0-44.0); Mean Cell Volume 97.8 fL (78-100); Mean Corpuscular Hemoglobin 31.1 pg (26-32); Mean Corpuscular Hgb Concent. 31.8 g/dL (32-36); Mean Platelet Volume 8.8 fL (7.5-11.0); Monocyte (Absolute #) 0.58 x10^3/uL (0.0-1.3); Monocytes % 4.8 % (0.0-12.0); Neutrophil % 84.8 % (36.0-66.0); Platelet Count 261 x10^3/uL (150-450); Red Blood Count 4.09 x10^6/uL (4.1-5.4); Red Cell Distribution Width 12.3 % (11.5-14.0)
[2023-05-22 12:37] LABS: Appearance Clear (Clear); Bacteria None Seen /HPF (None Seen); Bilirubin Negative (Negative); Blood Negative (Negative); Epithelial Cells None Seen /HPF (None Seen); Glucose, Urine Negative (Negative); Hyaline Casts NONE SEEN /LPF (0-2); Ketones Negative (Negative); Leukocyte Esterase Negative (Negative); Nitrite Negative (Negative); Protein,Urine Dip Negative (Negative); Specific Gravity 1.025 (1.005-1.030); Urobilinogen 0.2 mg/dL (0.2); WBC 0-2 /HPF (0-5)
[2023-05-22 12:38] LABS: ADD URINE CULTURE? NO (NO)
[2023-05-22 12:39] LABS: HCG SERUM TEST NEGATIVE (NEGATIVE)
[2023-05-22 12:42] LABS: ALBUMIN 3.9 g/dL (3.5-5.0); ANION GAP 11.9 MEQ/L (5-15); BILIRUBIN,TOTAL 0.3 mg/dL (0.2-1.3); Calcium 8.5 mg/dL (8.4-10.2); Creatinine 1 0.7 mg/dL (0.52-1.04); EST GLOMERULAR FILTRATION RATE 125.3 ML/MIN; Potassium 4.1 mmol/L (3.5-5.1); Total Protein 6.7 g/dL (6.3-8.2)
[2023-05-22 13:11] VITALS: RESP 16
--- NOTE | 2023-05-22 14:15 | XRAY ---
CLINICAL HISTORY:Upper abdominal pain/vomiting COMPARISON:None TECHNIQUE:CT of the abdomen and pelvis was performed with axial images as well as sagittal and coronal reconstruction images without intravenous contrast. DLP 530.03 mGy*cm FINDINGS: The liver is normal in size, and morphology and appears unremarkable with no intrahepatic or extrahepatic bile duct dilation. The gallbladder is surgically absent with cholecystectomy clips in place. Unremarkable appearing pancreas. No pancreatic mass or ductal dilatation is seen. Unremarkable appearing spleen. The adrenal glands are normal. The kidneys appear unremarkable with no cysts masses or hydronephrosis. The ureters are normal with no stones. Unremarkable abdominal aorta without specific evidence of aneurysm or dissection. IVC is normal. A small fat-containing umbilical hernia is noted . The stomach appears unremarkable. Unremarkable appearing duodenum. Long segment of small bowel in the left mid abdomen (measuring approximately 20cm) showing diffuse wall thickening measuring up to 5 mm with mild prominence with bowel diameter measures up to 2.8 cm. The adjacent proximal and the distal bowel appears collapsed . No adjacent fat stranding or enlarged lymph nodes identified. The colon appears normal. No free air and no ascites. No free intraperitoneal air is seen. The bladder is unremarkable with no stones. The uterus appears unremarkable. Osseous structures within abdomen and pelvis appears unremarkable. There is a fine atelectatic band in right lower lung lobe. The rest of the visualized lung bases appear unremarkable. The heart size is within normal limits. IMPRESSION: 1. Long segment of small bowel in the left mid abdomen (measuring approximately 20cmin length) showing diffuse wall thickening with mild prominence of bowel diameter , findings raising possibility of inflammatory process ,would recommend follow-up CT abdomen with oral and IV contrast if symptoms persist. 2. Small fat-containing umbilical hernia. 3. Rest of the abdominal visceras appears normal. Electronically Signed by: Joan Pedroza MD. (05/22/2023 13:14:35 DENTAL DIRECTOR)
[2023-05-22 14:40] VITALS: PULSE 77
[2023-05-22] MEDS ORDERED: Reglan 10 MG/2 ML IV ONE (14:50)
[2023-05-22] MEDS ORDERED: Reglan 10 MG/2 ML ONE (14:54)
[2023-05-22] MEDS ORDERED: Cipro 500 MG PO STA (15:41)
[2023-05-22] MEDS ORDERED: Flagyl 500 MG PO ONE (15:42)
[2023-05-22] MEDS ORDERED: Flagyl 500 MG ONE (15:47)
[2023-05-22] MEDS ORDERED: Cipro 500 MG ONE (15:47)
[2023-05-22 16:10] VITALS: O2SAT 99
[2023-05-22] MEDS ORDERED: Hydromorphone 1 mg/ml Injection IV ONE (16:25)
[2023-05-22] MEDS ORDERED: Hydromorphone 1 mg/ml Injection ONE (16:28)
--- NOTE | 2023-05-22 16:54 | ERPHSYRPT ---
- History of Present Illness Time Seen by Provider: 05/22/23 11:53 Historian: patient Exam Limitations: no limitations Patient Subjective Stated Complaint: has a tooth infection that has been treated for about two month with penicillin, cefdinir, and currently taking clindamycin since wednesday. woke up at 5 am with sharp, intermittent abdominal pain, nausea, and vomiting. took zofran and vomiting again 10 minutes later. Triage Nursing Assessment: patient ambulated from waiting room with no difficulty. abd soft, tender epigastric area, bs x4. rates abdominal pain 9/10 that woke her up from sleep around 5 am. Physician History: 22 years old female presented in the ER with chief complaint of multiple episodes of nonprojectile, nonbilious vomiting without hematemesis with upper abdominal pain waking her up from sleep this morning. Patient reports cramping pain, aggravated with vomiting and better in between. No diarrhea. No fever or chills reported. Feels weak fatigued tired and dehydrated. Allergies/Adverse Reactions: honey Allergy (Severe, Verified 05/13/23 12:24) Difficulty Breathing divalproex sodium [From Depakote] Allergy (Mild, Verified 05/13/23 12:24) Rash morphine Allergy (Mild, Verified 05/13/23 12:24) Rash Penicillins Allergy (Verified 05/13/23 12:24) Home Medications: hydrOXYzine HCL [Hydroxyzine HCl] 25 mg PO Q4H PRN PRN 03/10/22 [History] Ondansetron ODT 4 MG [Zofran Odt 4 mg] 1 tab PO Q8H PRN PRN 08/09/22 [History] Viloxazine HCl [Qelbree] 100 mg PO DAILY 05/13/23 [History] Brexpiprazole [Rexulti] 2 mg PO DAILY 05/22/23 [History] Hx Tetanus, Diphtheria Vaccination/Date Given: Yes Hx Influenza Vaccination/Date Given: No Hx Pneumococcal Vaccination/Date Given: No Immunizations Up to Date: Yes Travel Risk - International Travel Have you traveled outside of the country in past 3 weeks: No - Coronavirus Screening Are you exhibiting any of the following symptoms?: No Close contact with a COVID-19 positive Pt in past 14-21 Days: No - Vaccine Status Have you recieved a Covid-19 vaccination: No - Review of Systems Constitutional: Fatigue, Weakness Ears, Nose, & Throat: No Symptoms Respiratory: No Symptoms Cardiac: No Symptoms Abdominal/Gastrointestinal: Abdominal Pain, Nausea, Vomiting Genitourinary Symptoms: No Symptoms Musculoskeletal: No Symptoms Skin: No Symptoms Neurological: No Symptoms Hematologic/Lymphatic: No Symptoms Immunological/Allergic: No Symptoms - Past Medical History Pertinent Past Medical History: Yes Neurological History: Migraines, Seizures ENT History: No Pertinent History Cardiac History: Congenital Heart Disease Respiratory History: Asthma, Bronchitis Endocrine Medical History: No Pertinent History Musculoskeletal History: No Pertinent History GI Medical History: GERD, Irritable Bowel, Polyps History: No Pertinent History Psycho-Social History: Anxiety, Attention Deficit Disorder, Bipolar, Depression Female Reproductive Disorders: Other Other Medical History: Pt unsure of what her congenital heart disease was. 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 Ovarian cysts., factor 5 - Past Surgical History Past Surgical History: Yes Neuro Surgical History: No Pertinent History Cardiac: No Pertinent History Respiratory: No Pertinent History Gastrointestinal: Cholecystectomy Genitourinary: No Pertinent History Musculoskeletal: No Pertinent History Female Surgical History: No Pertinent History Other Surgical History: colonoscopy - Social History Smoking Status: Current every day smoker How long have you smoked: 5 years Exposure to second hand smoke: Yes Drug Use: marijuana Patient Lives Alone: Yes Significant Family History: no pertinent family hx - Female History Hx Last Menstrual Period: 05/16/23 Hx Now: (Unknown) - Nursing Vital Signs Nursing Vital Signs: Initial Vital Signs Temperature 97.0 F 05/22/23 11:42 Pulse Rate 78 05/22/23 11:42 Respiratory Rate 18 05/22/23 11:42 Blood Pressure 115/67 05/22/23 11:42 O2 Sat by Pulse Oximetry 98 05/22/23 11:42 Pain Scale Pain Intensity 7 - Physical Exam General Appearance: no apparent distress, alert Eye Exam: PERRL/EOMI Ears, Nose, Throat Exam: normal ENT inspection, TMs normal, pharynx normal Neck Exam: normal inspection, full range of motion Respiratory Exam: normal breath sounds, lungs clear Cardiovascular Exam: regular rate/rhythm, normal heart sounds Gastrointestinal/Abdomen Exam: soft, normal bowel sounds, tenderness (Upper abd omen/epigastric area) Extremity Exam: normal inspection, normal range of motion Neurologic Exam: alert, oriented x 3, cooperative Skin Exam: normal color SpO2 Interpretation: normal SpO2: 99 O2 Delivery: Room Air Ordered Tests: Active Orders 24 hr Category Date Time Status IV Insertion STAT Care 05/22/23 12:08 Active NPO (ED) STAT Care 05/22/23 12:08 Active ABDOMEN AND PELVIS W/0 CONTRAS [CT] Stat Exams 05/22/23 12:08 Completed CBC W DIFF Stat Lab 05/22/23 12:20 Completed CMP Stat Lab 05/22/23 12:20 Completed HCG QUALITATIVE, SERUM Stat Lab 05/22/23 12:20 Completed LIPASE Stat Lab 05/22/23 12:20 Completed UA W/RFX UR CULTURE Stat Lab 05/22/23 12:10 Completed Medication Summary Discontinued Medications Generic Name Dose Route Start Last Admin Trade Name Georgeq PRN Reason Stop Dose Admin Acetaminophen 975 mg 05/22/23 12:08 05/22/23 12:15 Acetaminophen 325 Mg Tablet PO 05/22/23 12:09 975 mg STAT ONE Administration Acetaminophen Confirm 05/22/23 12:12 Acetaminophen 325 Mg Tablet Administered 05/22/23 12:13 Dose 975 mg .ROUTE .STK-MED ONE Ciprofloxacin 500 mg 05/22/23 15:41 05/22/23 15:48 Ciprofloxacin 500 Mg Tablet PO 05/22/23 15:42 500 mg ONCE STA Administration Ciprofloxacin Confirm 05/22/23 15:47 Ciprofloxacin 500 Mg Tablet Administered 05/22/23 15:48 Dose 500 mg .ROUTE .STK-MED ONE Hydromorphone HCl 0.5 mg 05/22/23 16:25 05/22/23 16:29 Hydromorphone 1 Mg/1ml Inj IV 05/22/23 16:26 0.5 mg STAT ONE Administration Hydromorphone HCl Confirm 05/22/23 16:28 Hydromorphone 1 Mg/1ml Inj Administered 05/22/23 16:29 Dose 1 mg .ROUTE .STK-MED ONE Sodium Chloride 1,000 mls @ 999 mls/hr 05/22/23 12:08 05/22/23 13:17 Sodium Chloride 0.9% 1000 Ml IV 05/22/23 13:08 Infused .Q1H1M STA Infusion Sodium Chloride Confirm 05/22/23 12:12 Sodium Chloride 0.9% 1000 Ml Administered 05/22/23 12:13 Dose 1,000 mls @ ud .ROUTE .STK-MED ONE Sodium Chloride 1,000 mls @ 999 mls/hr 05/22/23 13:13 05/22/23 14:16 Sodium Chloride 0.9% 1000 Ml IV 05/22/23 14:13 Infused .Q1H1M STA Infusion Sodium Chloride Confirm 05/22/23 13:15 Sodium Chloride 0.9% 1000 Ml Administered 05/22/23 13:16 Dose 1,000 mls @ ud .ROUTE .STK-MED ONE Ketorolac Tromethamine 15 mg 05/22/23 12:08 05/22/23 12:16 Ketorolac Tromethamine 30 Mg/Ml Inj IV 05/22/23 12:09 15 mg STAT ONE Administration Ketorolac Tromethamine Confirm 05/22/23 12:12 Ketorolac Tromethamine 30 Mg/Ml Inj Administered 05/22/23 12:13 Dose 30 mg .ROUTE .STK-MED ONE Metoclopramide HCl 10 mg 05/22/23 14:50 05/22/23 14:55 Metoclopramide Hcl 10 Mg/2 Ml Vial IV 05/22/23 14:51 10 mg STAT ONE Administration Metoclopramide HCl Confirm 05/22/23 14:54 Metoclopramide Hcl 10 Mg/2 Ml Vial Administered 05/22/23 14:55 Dose 10 mg .ROUTE .STK-MED ONE Metronidazole 500 mg 05/22/23 15:42 05/22/23 15:48 Metronidazole 500 Mg Tablet PO 05/22/23 15:43 500 mg STAT ONE Administration Metronidazole Confirm 05/22/23 15:47 Metronidazole 500 Mg Tablet Administered 05/22/23 15:48 Dose 500 mg .ROUTE .STK-MED ONE Ondansetron HCl 4 mg 05/22/23 12:08 05/22/23 12:16 Ondansetron Hcl 4 Mg/2 Ml Vial IV 05/22/23 12:09 4 mg STAT ONE Administration Ondansetron HCl Confirm 05/22/23 12:12 Ondansetron Hcl 4 Mg/2 Ml Vial Administered 05/22/23 12:13 Dose 4 mg .ROUTE .STK-MED ONE Lab/Rad Data: Laboratory Result Diagrams 05/22/23 12:20 05/22/23 12:20 Laboratory Results 05/22/23 05/22/23 05/22/23 Range/Units 12:20 12:20 12:20 WBC 12.0 H (4.0-10.5) x10^3/uL RBC 4.09 L (4.1-5.4) x10^6/uL Hgb 12.7 (12.0-16.0) g/dL Hct 40.0 (35-47) % MCV 97.8 (78-100) fL MCH 31.1 (26-32) pg MCHC 31.8 L (32-36) g/dL RDW 12.3 (11.5-14.0) % Plt Count 261 (150-450) x10^3/uL MPV 8.8 (7.5-11.0) fL Gran % 84.8 H (36.0-66.0) % Immature Gran % (Auto) 0.4 (0.00-0.4) % Nucleat RBC Rel Count 0.0 (0.00-0.1) % Eos # (Auto) 0.19 (0-0.5) x10^3/uL Immature Gran # (Auto) 0.05 H (0.00-0.03) x10^3u/L Absolute Lymphs (auto) 0.98 L (1.0-4.6) x10^3/uL Absolute Monos (auto) 0.58 (0.0-1.3) x10^3/uL Absolute Nucleated RBC 0.00 (0.00-0.01) x10^3u/L Lymphocytes % 8.2 L (24.0-44.0) % Monocytes % 4.8 (0.0-12.0) % Eosinophils % 1.6 (0.00-5.0) % Basophils % 0.2 (0.0-0.4) % Absolute Granulocytes 10.17 H (1.4-6.9) x10^3/uL Basophils # 0.02 (0-0.4) x10^3/uL Sodium 137 (137-145) mmol/L Potassium 4.1 (3.5-5.1) mmol/L Chloride 107 (98-107) mmol/L Carbon Dioxide 23 (22-30) mmol/L Anion Gap 11.9 (5-15) MEQ/L BUN 17 (7-17) mg/dL Creatinine 0.70 (0.52-1.04) mg/dL Estimated GFR 125.3 ML/MIN Glucose 99 (74-106) mg/dL Calcium 8.5 (8.4-10.2) mg/dL Total Bilirubin 0.30 (0.2-1.3) mg/dL AST 34 (14-36) U/L ALT 40 H (0-35) U/L Alkaline Phosphatase 57 (38-126) U/L Serum Total Protein 6.7 (6.3-8.2) g/dL Albumin 3.9 (3.5-5.0) g/dL Lipase 75 (23-300) U/L Serum HCG, Qual NEGATIVE (NEGATIVE) Urine Color (Yellow) Urine Appearance (Clear) Urine pH (4.6-8.0) Ur Specific Bone Gap (1.005-1.030) Urine Protein (Negative) Urine Glucose (UA) (Negative) mg/dL Urine Ketones (Negative) Urine Blood (Negative) Urine Nitrite (Negative) Urine Bilirubin (Negative) Urine Urobilinogen (0.2) mg/dL Ur Leukocyte Esterase (Negative) U Hyaline Cast (Auto) (0-2) /LPF Urine Microscopic RBC (0-5) /HPF Urine Microscopic WBC (0-5) /HPF Ur Epithelial Cells (None Seen) /HPF Urine Bacteria (None Seen) /HPF Urine Culture Reflexed (NO) 05/22/23 Range/Units 12:10 WBC (4.0-10.5) x10^3/uL RBC (4.1-5.4) x10^6/uL Hgb (12.0-16.0) g/dL Hct (35-47) % MCV (78-100) fL MCH (26-32) pg MCHC (32-36) g/dL RDW (11.5-14.0) % Plt Count (150-450) x10^3/uL MPV (7.5-11.0) fL Gran % (36.0-66.0) % Immature Gran % (Auto) (0.00-0.4) % Nucleat RBC Rel Count (0.00-0.1) % Eos # (Auto) (0-0.5) x10^3/uL Immature Gran # (Auto) (0.00-0.03) x10^3u/L Absolute Lymphs (auto) (1.0-4.6) x10^3/uL Absolute Monos (auto) (0.0-1.3) x10^3/uL Absolute Nucleated RBC (0.00-0.01) x10^3u/L Lymphocytes % (24.0-44.0) % Monocytes % (0.0-12.0) % Eosinophils % (0.00-5.0) % Basophils % (0.0-0.4) % Absolute Granulocytes (1.4-6.9) x10^3/uL Basophils # (0-0.4) x10^3/uL Sodium (137-145) mmol/L Potassium (3.5-5.1) mmol/L Chloride (98-107) mmol/L Carbon Dioxide (22-30) mmol/L Anion Gap (5-15) MEQ/L BUN (7-17) mg/dL Creatinine (0.52-1.04) mg/dL Estimated GFR ML/MIN Glucose (74-106) mg/dL Calcium (8.4-10.2) mg/dL Total Bilirubin (0.2-1.3) mg/dL AST (14-36) U/L ALT (0-35) U/L Alkaline Phosphatase (38-126) U/L Serum Total Protein (6.3-8.2) g/dL Albumin (3.5-5.0) g/dL Lipase (23-300) U/L Serum HCG, Qual (NEGATIVE) Urine Color Yellow (Yellow) Urine Appearance Clear (Clear) Urine pH 7.0 (4.6-8.0) Ur Specific Bone Gap 1.025 (1.005-1.030) Urine Protein Negative (Negative) Urine Glucose (UA) Negative (Negative) mg/dL Urine Ketones Negative (Negative) Urine Blood Negative (Negative) Urine Nitrite Negative (Negative) Urine Bilirubin Negative (Negative) Urine Urobilinogen 0.2 (0.2) mg/dL Ur Leukocyte Esterase Negative (Negative) U Hyaline Cast (Auto) NONE SEEN (0-2) /LPF Urine Microscopic RBC 3-5 (0-5) /HPF Urine Microscopic WBC 0-2 (0-5) /HPF Ur Epithelial Cells None Seen (None Seen) /HPF Urine Bacteria None Seen (None Seen) /HPF Urine Culture Reflexed NO (NO) - Progress Progress: improved, re-examined Progress Note: 05/22/23 16:51 22 years old is evaluated for upper abdominal pain with nausea vomiting since morning followed by generalized weakness fatigue and tiredness. She is given fluid bolus along with symptomatic treatment, on reevaluation she is feeling much better. She has some upper abdominal tenderness in the midline area but no rebound tenderness. Work-up showed white count of 12, fairly unremarkable chemistries. CT abdomen pelvis without contrast showed long segment of small bowel in the left mid abdomen showing diffuse wall thickness with mild prominence of bowel diameter finding raising possibility of inflammatory process which need further evaluation with CT with contrast. Patient has a strong family history of Crohn's disease. This could be possibly inflammatory bowel disease. I have given her a dose of Cipro and Flagyl. Recommended taking Tylenol and outpatient follow-up with primary care and possible GI referral. Discussed signs symptoms of worsening needing return to ER which she seems understanding. Counseled pt/family regarding: lab results, diagnosis, need for follow-up, rad results Medical Desision Making - Diagnostic Testing Diagnostic test were ordered, analyzed, and reviewed by me: Yes Radiological Interpretation: Reviewed by me, Teleradiologist Report - Risk of complications The pt has a mod risk of morbidity or mortality based on: Need for prescription drug management - Departure Departure Disposition: Home Clinical Impression: Enteritis Condition: Stable Critical Care Time: No Referrals: LONG DAWKINS MD [Primary Care Provider] - Follow up with PCP 2 days Instructions: Abdominal pain Additional Instructions: Take Tylenol/Zofran as needed. Follow-up with primary care for reevaluation and may need referral for GI for further evaluation of possible Crohn's disease. Return to ER for intractable vomiting/abdominal pain/fever chills etc. Prescriptions: Ciprofloxacin [Cipro 500 MG] 500 mg PO BID #14 tablet Metronidazole 500 mg [Flagyl 500 MG] 500 mg PO TID #21 tablet Ondansetron ODT 4 MG [Zofran Odt 4 mg] 1 ea PO QIDPRN PRN #7 tablet PRN Reason: n/v
[2023-05-22 17:11] VITALS: BP 102/57
== END 2023-05-22 17:11 | disposition home or self-care (01) ==
LOC: ED 11:41
DX: K52.9 Noninfective gastroenteritis and colitis, unspecified (principal); R11.2 Nausea with vomiting, unspecified; R10.10 Upper abdominal pain, unspecified; R53.83 Other fatigue; Z79.899 Other long term (current) drug therapy; Z28.310 Unvaccinated for COVID-19; Z72.0 Tobacco use
CPT/HCPCS: 36000; 36415; 74176; 80053; 81001; 83690; 84703; 85025; 96374; 96375; 99284; J1170; J1885; J2405; A9270-GY

== ENCOUNTER 2024-05-08 02:00 | Emergency (ER) | payer MEDICARE ==
--- NOTE | 2024-05-08 02:12 | ERPHSYRPT ---
- History of Present Illness Source: patient Exam Limitations: no limitations Physician History: Patient recently increased her dose of Caplyta. This was about 2 to 3 days ago. She was sitting down looking in a mirror trying to get a piece of glitter out of her eye. When she stood up she got lightheaded and she said she felt like her blood pressure dropped. She got dizzy. She remembers somebody asking if she was okay. That was about 2 or 3 minutes later. It was a witnessed episode. She was a alert and oriented immediately. She did not have any postictal symptoms. She had some sweating and nausea. She says that this has happened before with the postural hypotension. But she has not passed out. She did not have any palpitations or shortness of breath or chest pain or anything like that. Nothing makes his symptoms better or worse. They called EMS. Witnessed: by friend Prior Episodes: single episode today Loss of Consciousness: brief (seconds) Allergies/Adverse Reactions: honey Allergy (Severe, Verified 05/08/24 02:08) Difficulty Breathing divalproex sodium [From Depakote] Allergy (Mild, Verified 05/08/24 02:08) Rash morphine Allergy (Mild, Verified 05/08/24 02:08) Rash Penicillins Allergy (Verified 05/08/24 02:08) Home Medications: hydrOXYzine HCL [Hydroxyzine HCl] 25 mg PO Q4H PRN PRN 03/10/22 [History] Ondansetron ODT 4 MG [Zofran Odt 4 mg] 1 tab PO Q8H PRN PRN 08/09/22 [History] Viloxazine HCl [Qelbree] 100 mg PO DAILY 05/13/23 [History] Brexpiprazole [Rexulti] 2 mg PO DAILY 05/22/23 [History] Hx Tetanus, Diphtheria Vaccination/Date Given: Yes Hx Influenza Vaccination/Date Given: No Hx Pneumococcal Vaccination/Date Given: No - Past Medical History Pertinent Past Medical History: Yes Neurological History: Migraines, Seizures ENT History: No Pertinent History Cardiac History: Congenital Heart Disease Respiratory History: Asthma, Bronchitis Endocrine Medical History: No Pertinent History Musculoskeletal History: No Pertinent History GI Medical History: GERD, Irritable Bowel, Polyps History: No Pertinent History Psycho-Social History: Anxiety, Attention Deficit Disorder, Bipolar, Depression Female Reproductive Disorders: Other Other Medical History: Pt unsure of what her congenital heart disease was. 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 Ovarian cysts., factor 5 - Past Surgical History Past Surgical History: Yes Neuro Surgical History: No Pertinent History Cardiac: No Pertinent History Respiratory: No Pertinent History Gastrointestinal: Cholecystectomy Genitourinary: No Pertinent History Musculoskeletal: No Pertinent History Female Surgical History: No Pertinent History Other Surgical History: colonoscopy Significant Family History: no pertinent family hx - Female History Hx Last Menstrual Period: apr 23 - Social History Smoking Status: Current every day smoker How long have you smoked: 5 years Exposure to second hand smoke: Yes Drug Use: marijuana Patient Lives Alone: Yes - Review of Systems Constitutional: No Symptoms Eyes: No Symptoms Ears, Nose, & Throat: No Symptoms Respiratory: No Symptoms Cardiac: No Symptoms Musculoskeletal: No Symptoms Neurological: No Symptoms Psychological: No Symptoms All Other Systems: Reviewed and Negative Physical Exam - [place] Coma Scale Best Eye Response ([place]): (4) open spontaneously Best Verbal Response ([place]): (5) oriented Best Motor Response ([place]): (6) obeys commands [place] Total: 15 - Physical Exam General Appearance: no apparent distress Eye Exam: bilateral eye: normal inspection, PERRL, EOMI Ears, Nose, Throat Exam: normal ENT inspection, TMs normal Neck Exam: normal inspection, non-tender Respiratory: normal breath sounds, No respiratory distress Cardiovascular: regular rate/rhythm Gastrointestinal: soft, normal bowel sounds Mental Status: alert, oriented x 3 care associate Exam: normal hearing, normal speech, PERRL Coordination/Gait: normal cerebellar function Motor/Sensory: no motor deficit, no sensory deficit Skin Exam: normal color - Course Nursing assessment & vital signs reviewed: Yes EKG Interpreted by Me: RATE, Sinus Rhythm, NORMAL AXIS, NORMAL INTERVALS Ordered Tests: Active Orders 24 hr Category Date Time Status EKG-ER Only STAT Care 05/08/24 02:12 Ordered BMP Stat Lab 05/08/24 02:12 Ordered CBC W DIFF Stat Lab 05/08/24 02:12 Ordered HCG QUALITATIVE, SERUM Stat Lab 05/08/24 02:12 Ordered - Progress Progress: improved Progress Note: Patient was stable throughout stay. This is clearly a postural hypotension episode. There is no seizure-like activity. I went to encourage her to drink lots of fluids. I will give her IV fluids here but there is a shortage. Her lab work all look good. Her EKG was done as interpreted by me. There is no acute findings.I looked in Caplyta can cause hypotension posturally. 05/08/24 02:15 Medical Desision Making - Diagnostic Testing Diagnostic test were ordered, analyzed, and reviewed by me: Yes - Risk of complications Minimal Risk: Minimal risk of morbidity - Departure Departure Disposition: Home Clinical Impression: Postural hypotension Condition: Stable Critical Care Time: No Referrals: LONG DAWKINS MD [Primary Care Provider] - Follow up/PCP as directed Instructions: Orthostatic hypotension
[2024-05-08 02:22] VITALS: BP 119/80; PULSE 110; RESP 32; TEMP 99.1; O2SAT 100
[2024-05-08 02:37] LABS: Absolute Neutrophil Ct (ANC) 4.58 x10^3/uL (1.56-6.13); BASOPHIL % 0.3 % (0.1-1.2); Basophil (Absolute #) 0.03 x10^3/uL (0.01-0.08); Eosinophil % 1.4 % (0.7-5.8); Eosinophil (Absolute #) 0.12 x10^3/uL (0.04-0.36); Hematocrit 37.6 % (34.1-44.9); Hemoglobin 12.6 g/dL (11.2-15.7); IMMATURE GRAN # 0.03 x10^3u/L (0.001-0.031); IMMATURE GRAN % 0.3 % (0.001-0.429); Lymphocyte (Absolute #) 3.52 x10^3/uL (1.18-3.74); Lymphocytes % 39.6 % (19.3-51.7); Mean Cell Volume 91.7 fL (79.4-94.8); Mean Corpuscular Hemoglobin 30.7 pg (25.6-32.2); Mean Corpuscular Hgb Concent. 33.5 g/dL (32.2-35.5); Mean Platelet Volume 9.1 fL (9.4-12.3); Monocytes % 6.8 % (4.7-12.5); Neutrophil % 51.6 % (34.0-71.1); Platelet Count 309 x10^3/uL (182-369); Red Cell Distribution Width 11.9 % (11.7-14.4); White Blood Count 8.9 x10^3/uL (3.98-10.04)
[2024-05-08 02:49] LABS: HCG SERUM TEST NEGATIVE (NEGATIVE)
[2024-05-08 02:51] LABS: ANION GAP 14.1 MEQ/L (5-15); Creatinine 1 0.88 mg/dL (0.52-1.04); EST GLOMERULAR FILTRATION RATE 94.6 ML/MIN; Potassium 4.1 mmol/L (3.5-5.1)
== END 2024-05-08 03:00 | disposition home or self-care (01) ==
LOC: ED 02:00
DX: I95.1 Orthostatic hypotension (principal); R11.0 Nausea; Z79.899 Other long term (current) drug therapy; Z72.0 Tobacco use
CPT/HCPCS: 36415; 80048; 84703; 85025; 93005; 99283